=== PATIENT | male | born 1935 | race Caucasian/White ===

== ENCOUNTER 2018-01-19 14:18 | Emergency (ER) | payer MEDICARE | END 2018-01-19 16:22 | disposition home or self-care (01) | LOC: ER 14:18 | DX: M25.552 Pain in left hip (principal); I10 Essential (primary) hypertension; K21.9 Gastro-esophageal reflux disease without esophagitis; Z88.0 Allergy status to penicillin; Z88.8 Allergy status to other drugs, medicaments and biological substances; Z98.890 Other specified postprocedural states; Z90.49 Acquired absence of other specified parts of digestive tract | CPT/HCPCS: 73502; 99284 ==

== ENCOUNTER 2021-08-23 14:28 | Emergency (ER) | payer MEDICARE ==
[~2021-08-23] VITALS: Ht 180.3 cm; Wt 92.2 kg
[~2021-08-23 14:28] MED LIST: ASPI-482 PO; CINN500C2 PO; HYDR-3164 PO; LEVO25TA4 PO; LISI20TA18 PO; NAPR-514 PO; OMEP20CA16 PO; UBID1CAP19 PO
[2021-08-23 15:43] LABS: BASO % 0 % (0-3); EOS % 0 % (0-3); HEMATOCRIT 40.5 % (39.0-53.0); HEMOGLOBIN 13.7 g/dL (13.0-17.5); LYMPH # 0.3 x10^3/uL (1.0-4.8); LYMPH % 4 % (24-48); MEAN CORPUSCULAR HEMOGLOBIN 29 pg (25-35); MEAN CORPUSCULAR HGB CONC 34 g/dL (31-37); MEAN CORPUSCULAR VOLUME 85 fL (79-100); MONO # 0.7 x10^3/uL (0.0-1.1); MONO % 9 % (0-9); NEUT # 7.4 x10^3/uL (1.8-7.7); NEUT % 87 % (31-73); PLATELET COUNT 264 x10^3/uL (140-400); RED BLOOD COUNT 4.78 x10^6/uL (4.30-5.70); RED CELL DISTRIBUTION WIDTH 14.1 % (11.5-14.5); WHITE BLOOD COUNT 8.5 x10^3/uL (4.0-11.0)
--- NOTE | 2021-08-23 15:45 | EKG ---
[facility] [address] [place] [address] Test Date: 2021-08-23 Test Time: 15:17:43 Pat Name: THOMAS MARTÍNEZ Department: Room: Gender: M Grinder Hand: : 1935 Requested By: PETE DELONG Order Number: [id number] Reading MD: Measurements Intervals [place] Rate: 92 P: 30 RI: 164 QRS: -74 QRSD: 124 T: 18 QT: 354 QTc: 443 Interpretive Statements SINUS RHYTHM ABNORMAL LEFT AXIS DEVIATION LEFT ANTERIOR FASCICULAR BLOCK RIGHT BUNDLE BRANCH BLOCK BIFASCICULAR BLOCK RVH WITH REPOLARIZATION ABNORMALITY ABNORMAL ECG RI6.02 No previous ECG available for comparison
[2021-08-23 15:53] LABS: CALCIUM 9.1 mg/dL (8.5-10.1); CREATININE 1.4 mg/dL (0.7-1.3); GFR 48.1; POTASSIUM 3.9 mmol/L (3.5-5.1)
--- NOTE | 2021-08-23 15:55 | RAD ---
XR CHEST 1V History: Reason: Cough chest pain / Spl. Instructions: / History: Comparison: November 29, 2015 Findings: Diffuse interstitial thickening with ill-defined opacities most prominent within the left mid and low er lung. No pleural effusion. No pneumothorax. Portable technique accentuates cardiac size. Prior gra nulomatous disease within the chest. Impression: 1. Mild interstitial thickening with ill-defined opacities, can be seen with chronic interstitial ch anges although pulmonary edema or infection is possible. Electronically signed by: Tom Vazquez DO (08/23/2021 3:53 PM) [facility]
[2021-08-23 15:58] LABS: ALBUMIN 3.1 g/dL (3.4-5.0); ALBUMIN/GLOBULIN RATIO 0.6 (1.0-1.7); MAGNESIUM 2.2 mg/dL (1.8-2.4); PHOSPHORUS 1.7 mg/dL (2.6-4.7); TOTAL BILIRUBIN 0.7 mg/dL (0.2-1.0); TOTAL PROTEIN 7.9 g/dL (6.4-8.2)
--- NOTE | 2021-08-23 16:08 | RAD ---
STUDY: CT head without contrast INDICATION: Syncopal episode. COMPARISON: 11/29/2015 TECHNIQUE: Axial CT imaging through the head without the use of intravenous contrast. Sagittal and co vashti reformats were obtained. One or more of the following individualized dose reduction techniques were utilized for this examinat ion: 1. Automated exposure control 2. Adjustment of the mA and/or kV according to patient size 3. Use of iterative reconstruction technique. FINDINGS: No acute intracranial hemorrhage. Valenzuela-white matter differentiation is maintained. No localized mass effect, midline shift or hydrocephalus. Parenchymal volume loss. White matter findings typical of chronic microvascular ischemic change. Intr acranial calcific atherosclerosis. No large scalp hematoma. Intact calvarium. Mild scattered paranasal sinus mucosal thickening without layering fluid. Normally aerated mastoid air cells. IMPRESSION: 1. No acute intracranial abnormality by CT. 2. Chronic/senescent observations as above. Electronically signed by: GISELA GARCIAS MD (08/23/2021 4:05 PM) [facility]
[2021-08-23 16:26] LABS: CREATINE KINASE 102 U/L (39-308)
[2021-08-23 16:41] LABS: INFLUENZA A PATIENT NEGATIVE (NEGATIVE); INFLUENZA B PATIENT NEGATIVE (NEGATIVE)
[2021-08-23] MEDS ORDERED: AZITHRMYCN 500MG IVPB FOR OMNI 250 ML IV ONE (17:00)
[2021-08-23] MEDS ORDERED: cefTRIAXone IV Push 1 GM VIAL. IVP ONE (17:00)
[2021-08-23 17:12] LABS: % BANDS 4 % (0-9); % LYMPHS 3 % (24-48); % MONOS 9 % (0-10); % SEGS 84 % (35-66); PLT ESTIMATE ADEQUATE (ADEQUATE)
--- NOTE | 2021-08-23 17:15 | PHYS DOC ---
Past Medical History Past Medical History: GERD, Hypertension, Unknown, Other Additional Past Medical Histor: L FEMUR HEAD FX (PETE DELONG APRN) Past Surgical History: Cholecystectomy, Other Additional Past Surgical Histo: Hernia repair,Lt. Arm,Lt Hip (PETE DELONG APRN) Smoking Status: Never Smoker Alcohol Use: None Drug Use: None (PETE DELONG APRN) General Adult EDM: Chief Complaint: FLU SYMPTOM HPI: HPI: Patient is a 85-year-old male who presents emergency department complaining of cough with shortness of breath since this past Friday, patient reports he became dizzy and had a passing out spell while heading toward the bathroom, patient denies hitting his head. Patient reports he feels dry in his mouth however states he has been drinking plenty of fluids. Patient denies chest pain or chest discomfort however does complain of rapid heart rate off and on since this past Friday. Patient reports receiving the COVID-19 virus vaccination series, [email or web address] type. Patient reports pain on lisinopril for high blood pressure, otherwise takes [id number] multivitamins. Patient denies nausea, vomiting, diarrhea, loss of taste or loss of smell. Patient denies other physical concerns or physical complaints. (PETE DELONG APRN) Review of Systems: Review of Systems: 14 body systems of review of systems have been reviewed. See HPI for pertinent positives and negative responses, otherwise all other systems are negative, nonpertinent or noncontributory. Constitutional: Negative except as outlined in HPI above. Skin: Negative except as outlined in HPI above. Eyes: Negative except as outlined in HPI above. HENT: Negative except as outlined in HPI above. Respiratory: Negative except as outlined in HPI above. Cardiovascular: Negative except as outlined in HPI above. GI: Negative except as outlined in HPI above. : Negative except as outlined in HPI above. Musculoskeletal: Negative except as outlined in HPI above. Integument: Negative except as outlined in HPI above. Neurologic: Negative except as outlined in HPI above. Endocrine: Negative except as outlined in HPI above. Lymphatic: Negative except as outlined in HPI above. Psychiatric: Negative except as outlined in HPI above. (PETE DELONG APRN) Heart Score: C/O Chest Pain: No Risk Factors: Risk Factors: DM, Current or recent (<one month) smoker, HTN, HLP, family his tory of CAD, obesity. Risk Scores: Score 0 - 3: 2.5% MACE over next 6 weeks - Discharge Home Score 4 - 6: 20.3% MACE over next 6 weeks - Admit for Clinical Observation Score 7 - 10: 72.7% MACE over next 6 weeks - Early Invasive Strategies (PETE DELONG APRN) Current Medications: Current Medications Medications (Trade) Dose Ordered Sig/Addy Start Time Stop Time Status Last Admin Dose Admin Azithromycin 250 ml @ 250 mls/hr 1X ONCE 08/23/21 17:00 08/23/21 17:59 Ceftriaxone Sodium (Rocephin) 1 gm 1X ONCE 08/23/21 17:00 08/23/21 17:01 DC (PETE DELONG APRN) Allergies: Allergies: Allergies Coded Allergies Type Severity Reaction Last Updated Verified hydrochlorothiazide Allergy Severe syncope 07/17/14 Yes Penicillins Allergy Intermediate unknown 07/17/14 Yes (PETE DELONG APRN) Physical Exam: PE: Constitutional: Well developed, well nourished, no acute distress, non-toxic appearance. 85-year-old female in no apparent distress. HENT: Normocephalic, atraumatic. Eyes: Conjunctiva normal, no discharge. Neck: Normal range of motion, no stridor. Cardiovascular: No cyanosis appreciated, distal cap refill less than 2 seconds. Regular rate and rhythm, heart sounds S1-S2 to auscultation. Lungs & Thorax: Patient is in no respiratory distress, no audible adventitious lung sounds appreciated. Lung sounds clear upper lobes, diminished bilateral lower lobes, no adventitious lung sounds appreciated per auscultation. Abdomen: Nontender, no abnormalities noted. Skin: Warm, dry, no erythema, no rash. Back: No tenderness, no deformities. Extremities: No tenderness, no cyanosis, no clubbing, ROM intact, no edema. Neurologic: Alert and oriented X 3, normal motor function, normal sensory function, no focal deficits noted. Psychologic: Affect normal, judgement normal, mood normal. (PETE DELONG APRN) Current Patient Data: Labs: Laboratory Tests Test 08/23/21 15:10 08/23/21 16:14 White Blood Count 8.5 x10^3/uL (4.0-11.0) Red Blood Count 4.78 x10^6/uL (4.30-5.70) Hemoglobin 13.7 g/dL (13.0-17.5) Hematocrit 40.5 % (39.0-53.0) Mean Corpuscular Volume 85 fL (79-100) Mean Corpuscular Hemoglobin 29 pg (25-35) Mean Corpuscular Hemoglobin Concent 34 g/dL (31-37) Red Cell Distribution Width 14.1 % (11.5-14.5) Platelet Count 264 x10^3/uL (140-400) Neutrophils (%) (Auto) 87 % (31-73) H Lymphocytes (%) (Auto) 4 % (24-48) L Monocytes (%) (Auto) 9 % (0-9) Eosinophils (%) (Auto) 0 % (0-3) Basophils (%) (Auto) 0 % (0-3) Neutrophils # (Auto) 7.4 x10^3/uL (1.8-7.7) Lymphocytes # (Auto) 0.3 x10^3/uL (1.0-4.8) L Monocytes # (Auto) 0.7 x10^3/uL (0.0-1.1) Eosinophils # (Auto) 0.0 x10^3/uL (0.0-0.7) Basophils # (Auto) 0.0 x10^3/uL (0.0-0.2) Platelet Estimate Pending Sodium Level 133 mmol/L (136-145) L Potassium Level 3.9 mmol/L (3.5-5.1) Chloride Level 95 mmol/L (98-107) L Carbon Dioxide Level 27 mmol/L (21-32) Anion Gap 11 (6-14) Blood Urea Nitrogen 24 mg/dL (8-26) Creatinine 1.4 mg/dL (0.7-1.3) H Estimated GFR (Cockcroft-Gault) 48.1 BUN/Creatinine Ratio 17 (6-20) Glucose Level 160 mg/dL (70-99) H Lactic Acid Level 3.3 mmol/L (0.4-2.0) H Calcium Level 9.1 mg/dL (8.5-10.1) Phosphorus Level 1.7 mg/dL (2.6-4.7) L Magnesium Level 2.2 mg/dL (1.8-2.4) Total Bilirubin 0.7 mg/dL (0.2-1.0) Aspartate Amino Transferase (AST) 59 U/L (15-37) H Alanine Aminotransferase (ALT) 59 U/L (16-63) Alkaline Phosphatase 168 U/L (46-116) H Creatine Kinase 102 U/L (39-308) Creatine Kinase MB (Mass) < 0.5 ng/mL (0.0-3.6) Creatine Kinase MB Relative Index % (0-4) Troponin I Quantitative < 0.017 ng/mL (0.000-0.055) VA-Kjt-Q-Type Natriuretic Peptide 424 pg/mL (0-449) Total Protein 7.9 g/dL (6.4-8.2) Albumin 3.1 g/dL (3.4-5.0) L Albumin/Globulin Ratio 0.6 (1.0-1.7) L Influenza Type A Antigen Negative (NEGATIVE) Influenza Type B Antigen Negative (NEGATIVE) SARS-CoV-2 Antigen (Rapid) Positive (NEGATIVE) *A Laboratory Tests 08/23/21 15:10 Laboratory Tests 08/23/21 15:10 Vital Signs: Vital Signs Date Time Temp Pulse Resp B/P (MAP) Pulse Ox O2 Delivery O2 Flow Rate FiO2 08/23/21 15:03 99.6 109 15 155/76 (102) 97 Room Air 99.6 (PETE DELONG APRN) EKG: EKG: EKG performed at 1517 by ED nursing staff shows a normal sinus rhythm with left axis deviation heart rate of 92 bpm, no other ectopy appreciated, NE interval 0.164, QTc interval 0.443, no acute STEMI, no ACS, no acute ischemia appreciated, EKG interpreted by ED attending physician Dr. Schwartz. (PETE DELONG APRN) Radiology/Procedures: Radiology/Procedures: PATIENT: THOMAS MARTÍNEZ ACCOUNT: [id number] : 1935 LOCATION: ER AGE: 85 SEX: M EXAM STATUS: PRE ER ORD. PHYSICIAN: PETE DELONG APRN REASON: Syncopal episode PROCEDURE: CT HEAD WO CONTRAST STUDY: CT head without contrast INDICATION: Syncopal episode. COMPARISON: 11/29/2015 TECHNIQUE: Axial CT imaging through the head without the use of intravenous contrast. Sagittal and coronal reformats were obtained. One or more of the following individualized dose reduction techniques were utilized for this examination: 1. Automated exposure control 2. Adjustment of the mA and/or kV according to patient size 3. Use of iterative reconstruction technique. FINDINGS: No acute intracranial hemorrhage. Valenzuela-white matter differentiation is maintained. No localized mass effect, midline shift or hydrocephalus. Parenchymal volume loss. White matter findings typical of chronic microvascular ischemic change. Intracranial calcific atherosclerosis. No large scalp hematoma. Intact calvarium. Mild scattered paranasal sinus mucosal thickening without layering fluid. Normally aerated mastoid air cells. IMPRESSION: 1. No acute intracranial abnormality by CT. 2. Chronic/senescent observations as above. Electronically signed by: GISELA GARCIAS MD (08/23/2021 4:05 PM) [facility]: CHEST AP ONLY XR CHEST 1V History: Reason: Cough chest pain / Spl. Instructions: / History: Comparison: November 29, 2015 Findings: Diffuse interstitial thickening with ill-defined opacities most prominent within the left mid and lower lung. No pleural effusion. No pneumothorax. Portable technique accentuates cardiac size. Prior granulomatous disease within the chest. Impression: 1. Mild interstitial thickening with ill-defined opacities, can be seen with chronic interstitial changes although pulmonary edema or infection is possible. Electronically signed by: Tom Vazquez DO (08/23/2021 3:53 PM) [facility] (PETE DELONG APRN) Course & Med Decision Making: Course & Med Decision Making Pertinent Labs and Imaging studies reviewed. (See chart for details) 85-year-old male, vital signs reviewed, presents emergency department concerning shortness of breath with disease fill and syncopal episode with intermittent rapid heart rate since this past Friday. Patient denies fever or chills however he did state he is not taking his temperature at home. Patient did have COVID- 19 virus vaccination series however presentation is similar to viral syndrome, will order Covid testing, rapid flu testing, cardiopulmonary work-up. Patient's cardiac work-up unremarkable, cardiac enzymes within normal limits, chest x-ray consistent with Covid pneumonia, patient's lactic acid elevated 3.3. Patient CT head unremarkable, however concerning for patient's symptoms and reported syncopal episode evaluation along with Covid pneumonia and elevated lactic acid, will recommend admission to the hospital. 1 g of Rocephin/500 mg azithromycin IV ordered. Discussed with patient ED evaluation findings and recommendation of admission, patient is amendable to ED planning. Discussed patient case and ED work-up with hospital management physician Dr. Combs who agrees patient case warrants admission for Covid pneumonia to the [facility] telemetry unit. Dr. Anton will examine patient in ED for ongoing and further hospital care. (PETE DELONG APRN) Dragon Disclaimer: Dragon Disclaimer: This electronic medical record was generated, in whole or in part, using a voice recognition dictation system. (PETE DELONG APRN) Departure Departure Impression: Primary Impression: COVID-19 virus RNA test result positive at limit of detection Additional Impressions: Viral syndrome Community acquired pneumonia Qualified Codes: J18.9 - Pneumonia, unspecified organism Elevated lactic acid level Disposition: ADMITTED INPATIENT Admitting Physician: HIMS (Admit to Dr. Combs to the [facility] telemetry/Covid unit.) (PETE DELONG APRN) Condition: STABLE Referrals: NICK SWENSON (PCP) Attending Signature I have participated in the care of this patient and I have reviewed and agree with all pertinent clinical information above including history, exam, and recommendations. (MARQUEZ SCHWARTZ DO) PETE DELONG APRN Aug 23, 2021 17:15 MARQUEZ SCHWARTZ DO Aug 23, 2021 17:52
[2021-08-23] MEDS ORDERED: IV NORMAL SALINE 1000ML BAG 1,000 ML IV ONE (18:15)
[2021-08-23 19:26] VITALS: BP 134/67
[2021-08-23] MEDS ORDERED: BENZ100C PO (19:41)
[2021-08-23] MEDS ORDERED: AZIT250T PO (19:41)
== END 2021-08-23 19:46 | disposition home or self-care (01) ==
LOC: ER 14:28
DX: U07.1 COVID-19 (principal); B34.9 Viral infection, unspecified; J18.9 Pneumonia, unspecified organism; R74.02 Elevation of levels of lactic acid dehydrogenase [LDH]; K21.9 Gastro-esophageal reflux disease without esophagitis; I10 Essential (primary) hypertension; Z90.49 Acquired absence of other specified parts of digestive tract; Z88.0 Allergy status to penicillin; Z88.8 Allergy status to other drugs, medicaments and biological substances
CPT/HCPCS: 36415; 70450; 71045; 80053; 82553; 83605; 83735; 83880; 84100; 84484; 85007; 85025; 86140; 87040; 87426; 87804; 93005; 96365; 96366; 96375; 99285; J0456; J0696; J7030; 96368